=== PATIENT | female | born 1995 | race Caucasian/White ===

== ENCOUNTER → 2016-11-15 | Outpatient (CLI) | payer OTHER ==
--- NOTE | 2016-11-16 07:16 | USB ---
Reason for exam: clinical finding. Indicated problem(s): palpable abnormality in both breasts. Physical Findings: Nurse Summary: 1.5cm movable palpable on the right breast and a 1.0cm movable palpable on the left breast (nurse dw). US Breast BILAT Right breast ultrasound includes all four quadrants, the retroareolar region and axilla. Finding demonstrates a 4 x 2 x 3mm oval, cystic lesion at 9 o'clock. Left breast ultrasound includes all four quadrants, the retroareolar region and axilla. Finding demonstrates no cystic or solid lesion seen. These results were verbally communicated with the patient and result sheet given to the patient on 11/15/16. ASSESSMENT: Benign, BI-RAD 2 RECOMMENDATION: Routine screening mammogram of both breasts at age 35. Manage patient on a clinical basis.
== END | disposition home or self-care (01) ==
LOC: RADUSWWP 15:30
PROVIDERS: ATTEND Family Medicine
DX: N63 Unspecified lump in breast (principal)

== ENCOUNTER → 2023-11-28 | Outpatient (CLI) | payer OTHER ==
[2023-11-28 16:54] LABS: HCT 43.7 % (37.2-46.3); HGB 14.2 g/dL (12.0-15.0); MCH 30.1 pg (27.0-32.0); MCHC 32.5 g/dL (32.0-37.0); MCV 92.6 FL (80.0-97.0); Mean Platelet Volume 11.2 FL (9.5-12.2); NRBC Per 100 WBC 0 X 10*3/uL (0.00-0.01); Platelet Count 364 X 10*3/uL (140-440); RBC 4.72 X 10*6/uL (4.10-5.20); WBC 6.58 X 10*3/uL (4.50-10.00)
[2023-11-28 16:58] LABS: ALT 14 U/L (8-44); AST 15 U/L (13-35); Albumin 4.8 g/dL (3.8-4.9); Albumin/Globulin Ratio 1.85 Ratio (1.60-3.17); Alkaline Phosphatase 69 U/L (41-126); BUN/Creat Ratio 13.71 Ratio (12.00-20.00); Blood Urea Nitrogen 9.6 mg/dL (9.0-27.0); Calcium 9.9 mg/dL (8.7-10.3); Chloride 104 mmol/L (96-109); Globulin 2.6 g/dL (1.6-3.3); Glucose 96 mg/dL (70-110); Potassium 4.1 mmol/L (3.5-5.5); Sodium 140 mmol/L (135-145); Total Bilirubin 0.4 mg/dL (0.3-1.2); Total Protein 7.4 g/dL (6.2-8.2)
== END | disposition home or self-care (01) ==
LOC: LABPAT 08:33
PROVIDERS: ATTEND Surgery
DX: K81.1 Chronic cholecystitis (principal)
CPT/HCPCS: 80053; 85027

== ENCOUNTER 2023-12-04 11:43 | Day surgery (SDC) | payer OTHER ==
[2023-12-04] MEDS ORDERED: SCOPOLAMINE 1 MG/72 HR PATCH TRANSDERM ONE (11:53)
[2023-12-04] MEDS ORDERED: MIDAZOLAM 2 MG/2 ML VIAL IV PRN (11:53)
[2023-12-04] MEDS: DEXAMETHASONE SOD PHOSPHATE 4 MG/ML 1 ML VIAL IV ONE (12:35)
[2023-12-04] MEDS: ONDANSETRON 4 MG/2 ML VIAL IVP ONE (12:36)
[2023-12-04] MEDS: HEPARIN SODIUM,PORCINE 5,000 UNIT/ML 1 ML VIAL SQ PRN (12:36)
[2023-12-04] MEDS: ACETAMINOPHEN TAB 500 MG TAB PO PRN (12:37)
[2023-12-04] MEDS: LACTATED RINGERS 1,000 ML IV SCH (12:45)
--- NOTE | 2023-12-04 13:00 | P.GSHP ---
History of Present Illness H&P Date: 12/04/23 Chief Complaint: Chronic cholecystitis 28-year-old female seen in late September. Patient with complaints of worsening right upper quadrant pain. Pain radiates to the back. Recent liver enzymes normal. Ultrasound shows gallstones with pericholecystic fluid and sonographic Smith sign positive. Past Medical History Past Medical History: Hypertension Additional Past Medical History / Comment(s): gallstones History of Any Multi-Drug Resistant Organisms: None Reported Past Surgical History: Adenoidectomy Additional Past Surgical History / Comment(s): wisdom teeth removed Past Anesthesia/Blood Transfusion Reactions: Postoperative Nausea & Vomiting (PONV) Additional Past Anesthesia/Blood Transfusion Reaction / Comment(s): w/wisdom teeth being removed Smoking Status: Never smoker - Past Family History Mother Family Medical History: No Reported History Medications and Allergies Home Medications Medication Instructions Recorded Confirmed Type Metoprolol Succinate (ER) [Toprol 25 mg PO HS 11/29/23 11/29/23 History Xl] Multivitamins, Thera [Multivitamin 1 tab PO DAILY 11/29/23 11/29/23 History (formulary)] Sertraline [Zoloft] 50 mg PO HS 11/29/23 11/29/23 History Allergies Allergy/AdvReac Type Severity Reaction Status Date / Time sulfamethoxazole Allergy GI upset Verified 11/29/23 15:19 [From Bactrim] trimethoprim [From Bactrim] Allergy GI upset Verified 11/29/23 15:19 Surgical - Exam Vital Signs Temp Pulse Resp BP Pulse Ox 98 F 85 18 133/83 99 12/04/23 12:16 12/04/23 12:16 12/04/23 12:16 12/04/23 12:16 12/04/23 12:16 Physical exam: General: Well-developed, well-nourished HEENT: Normocephalic, sclerae nonicteric Abdomen: Nontender, nondistended Extremities: No edema Neuro: Alert and oriented Assessment and Plan (1) Chronic cholecystitis Narrative/Plan: Will proceed with laparoscopic, possible open cholecystectomy at this time. Risks of bleeding, infection, bile leak, bile duct injury, retained common bile duct stone, trocar injury, conversion to an open procedure, hernia, anesthesia related complications were reviewed. The patient understands and wishes to proceed. Current Visit: Yes Status: Acute Code(s): K81.1 - CHRONIC CHOLECYSTITIS SNOMED Code(s): 41854672
[2023-12-04] MEDS ORDERED: GLYCOPYRROLATE 0.2 MG/ML 2 ML VIAL ONE (13:26)
[2023-12-04] MEDS ORDERED: fentaNYL (PF) 50 MCG/ML 2 ML AMP ONE (13:26)
[2023-12-04] MEDS ORDERED: PROPOFOL 10 MG/ML 20 ML VIAL IV ONE (13:26)
[2023-12-04] MEDS ORDERED: NEOSTIGMINE 1 MG/ML 10 ML VIAL ONE (13:26)
[2023-12-04] MEDS ORDERED: LIDOCAINE 1% INJ 10MG/ML (20 ML MDV) ONE (13:26)
[2023-12-04] MEDS ORDERED: MIDAZOLAM 2 MG/2 ML VIAL ONE (13:26)
[2023-12-04] MEDS ORDERED: ROCURONIUM 10 MG/ML (5 ML VIAL) IV ONE (13:26)
[2023-12-04] MEDS ORDERED: PHENYLEPHRINE 10 MG/ML VIAL ONE (13:26)
[2023-12-04] MEDS ORDERED: SUCCINYLCHOLINE CHLORIDE 200 MG/10 ML VIAL IV ONE (13:26)
[2023-12-04] MEDS ORDERED: ePHEDrine 50 MG/ML 1 ML VIAL ONE (13:26)
[2023-12-04] MEDS: BUPIVACAINE (PF) 0.25% 30 ML VIAL SQ ONE (13:52)
--- NOTE | 2023-12-04 14:31 | P.OP ---
Date of Procedure: 12/04/23 Procedure(s) Performed: PREOPERATIVE DIAGNOSIS: Chronic cholecystitis POSTOPERATIVE DIAGNOSIS: Same PROCEDURE: Laparoscopic cholecystectomy SURGEON: Sri EBL: 10 cc ANESTHESIA: Gen. COMPLICATIONS: None OPERATIVE PROCEDURE: The patient was brought and placed on the operating room table in the supine position. The patient was placed under general anesthesia at that time. The abdomen was prepped and draped in the usual sterile fashion. A small vertical infraumbilical incision was made. The fascia was grasped with the Keely forceps. The fascia was retracted anteriorly. The Veress needle was advanced into the peritoneal cavity. The saline drop test was normal. Insufflation took place up to 15 mmHg. A 5 mm optical trocar was advanced and the peritoneal cavity. 2 additional 5 mm trochars were placed in the right upper quadrant under direct visualization. A 12 mm trocar was advanced into the epigastric incision site. The gallbladder was retracted superiorly and laterally. There was mild inflammatory changes present with a few adhesions to the omentum. The patient's gallbladder was very long and narrow. A stone was located just proximal to the infundibulum. The peritoneum overlying the infundibulum was bluntly dissected. The patient's cystic duct was visualized. The junction between the cystic duct common and hepatic duct was identified. The critical view of safety was achieved after blunt dissection. The cystic duct was then divided after placement of 3 12 mm clips on the patient's side and one on the specimen side. The cystic artery was identified and clipped as well. A small vessel was seen along the gallbladder fossa and clipped as well. The gallbladder was then removed from the liver bed using electrocautery. The gallbladder was then removed from the epigastric trocar site with an Endo Catch bag. The gallbladder fossa was irrigated with saline. There was no evidence of any bleeding or biliary drainage seen. The fascia at the 12 millimeter site was closed using a Daryl-Jose 0 Vicryl stitch. The trochars were then removed. The skin at all 4 sites was closed using a 4-0 Monocryl stitch. Skin glue was utilized on the incision sites. At the end of this procedure the sponge and needle counts were correct. DISPOSITION: Stable to the recovery room
[2023-12-04 14:40] VITALS: TEMP 98.1
[2023-12-04] MEDS: HYDROmorphone 0.5 MG/0.5 ML SYRINGE IVP PRN (14:44)
[2023-12-04 15:28] VITALS: RESP 16
[2023-12-04] MEDS: IBUPROFEN 600 MG TAB PO SCH (15:45)
[2023-12-04 16:49] VITALS: PULSE 75
[2023-12-04 17:01] VITALS: BP 112/78
[2023-12-04] MEDS ORDERED: ACETAMINOPHEN TAB 325 MG TAB PO SCH (18:00)
== END 2023-12-04 17:28 | disposition home or self-care (01) ==
LOC: OR 11:43
PROVIDERS: ATTEND Surgery
DX: K80.10 Calculus of gallbladder with chronic cholecystitis without obstruction (principal); I10 Essential (primary) hypertension; Z88.1 Allergy status to other antibiotic agents; Z88.2 Allergy status to sulfonamides; Z90.89 Acquired absence of other organs
CPT/HCPCS: 81025; 88304

== ENCOUNTER 2024-10-15 09:53 | Outpatient (CLI) | payer OTHER ==
[2024-10-15 11:22] LABS: Basophils # (A) 0.04 10*3/uL (0.00-0.10); Basophils % (A) 0.4 %; Eosinophils # (A) 0.13 10*3/uL (0.04-0.35); Eosinophils % (A) 1.3 %; HCT 36.0 % (37.2-46.3); HGB 11.9 g/dL (12.0-15.0); Lymphocytes # (A) 1.35 10*3/uL (0.90-5.00); Lymphocytes % (A) 13.7 %; MCH 29.6 pg (27.0-32.0); MCHC 33.1 g/dL (32.0-37.0); MCV 89.6 fL (80.0-97.0); Monocytes # (A) 0.67 10*3/uL (0.20-1.00); Monocytes % (A) 6.8 %; Neutrophils # (A) 7.58 10*3/uL (1.80-7.70); Neutrophils % (A) 76.9 %; Platelet Count 230 10*3/uL (140-440); RBC 4.02 10*6/uL (4.10-5.20); RDW 14.3 % (11.5-14.5); WBC 9.86 10*3/uL (4.50-10.00)
[2024-10-15 11:40] LABS: ALT 11 U/L (4-34); AST 20 U/L (14-36); African American GFR (CKD) >90 (>60 ml/min/1.73 sqM); Blood Urea Nitrogen 11 mg/dL (7-17); LDH 177 U/L (120-246); Non-African American GFR(CKD) >90 (>60 ml/min/1.73 sqM); Uric Acid 8.2 mg/dL (3.7-7.4)
[2024-10-15 11:42] LABS: Bacteria,Urine Occasional /hpf; Bilirubin,Urine Negative (Negative); Blood,Urine Negative (Negative); Budding Yeast,Urine Few /hpf; Color,Urine Colorless; Glucose,Urine (UA) Negative (Negative); Ketones,Urine Negative (Negative); Leukocyte Esterase,Urine Large (Negative); Nitrite,Urine Negative (Negative); PH, Urine 6.0 (5.0-8.0); Protein,Urine Negative (Negative); RBC,Urine 4 /hpf (0-5); Specific Gravity,Urine 1.006 (1.001-1.035); Squamous Epithelial Cell,Urine 7 /hpf (0-4); Urobilinogen,Urine <2.0 mg/dL (<2.0); WBC,Urine 27 /hpf (0-5)
[2024-10-15 13:05] VITALS: BP 142/98; PULSE 88; RESP 18; TEMP 97.4
[2024-10-15 13:54] LABS: Protein/Creatinine Ratio,Urine 0.583
== END 2024-10-15 12:48 | disposition home or self-care (01) ==
LOC: FBPOP 09:53
PROVIDERS: ATTEND Obstetrics & Gynecology Obstetrics
CPT/HCPCS: 59025; 81001; 82565; 82570; 83615; 84156; 84450; 84460; 84520; 84550; 85025; 99215

== ENCOUNTER 2024-10-16 16:00 | Inpatient (IN) | payer OTHER ==
[2024-10-16] MEDS ORDERED: METHYLERGONOVINE 0.2 MG/ML 1 ML AMP IM PRN (16:18)
[2024-10-16] MEDS ORDERED: CARBOPROST TROMETHAMINE 250 MCG/ML 1 ML AMP IM PRN (16:18)
[2024-10-16] MEDS ORDERED: TERBUTALINE 1 MG/ML VIAL SQ PRN (16:18)
[2024-10-16] MEDS ORDERED: OXYTOCIN 10 UNIT/ML 1 ML VIAL IM PRN (16:18)
[2024-10-16] MEDS ORDERED: TRANEXAMIC 1,000 MG/100ML-NACL 1,000 MG in EMPTY BAG 1 BAG IV PRN (16:18)
[2024-10-16] MEDS: DINOPROSTONE 10 MG INSERT.ER VAGINAL ONE (17:12)
[2024-10-16] MEDS: LACTATED RINGERS 1,000 ML IV SCH (17:13)
[2024-10-16 17:16] LABS: Basophils # (A) 0.06 10*3/uL (0.00-0.10); Basophils % (A) 0.6 %; Eosinophils # (A) 0.18 10*3/uL (0.04-0.35); Eosinophils % (A) 1.7 %; HCT 33.8 % (37.2-46.3); HGB 11.4 g/dL (12.0-15.0); Lymphocytes # (A) 1.62 10*3/uL (0.90-5.00); Lymphocytes % (A) 15.1 %; MCH 30.5 pg (27.0-32.0); MCHC 33.7 g/dL (32.0-37.0); MCV 90.4 fL (80.0-97.0); Monocytes # (A) 0.72 10*3/uL (0.20-1.00); Monocytes % (A) 6.7 %; Neutrophils # (A) 8.02 10*3/uL (1.80-7.70); Neutrophils % (A) 74.9 %; Platelet Count 206 10*3/uL (140-440); RBC 3.74 10*6/uL (4.10-5.20); RDW 14.5 % (11.5-14.5); WBC 10.71 10*3/uL (4.50-10.00)
[2024-10-17] MEDS: NALBUPHINE 10 MG/ML (10 ML MDV) IV PRN (00:27)
[2024-10-17] MEDS: AMPICILLIN 2,000 MG in SODIUM CHLORIDE 0.9% 100 ML IVPB STA (06:25)
[2024-10-17] MEDS ORDERED: SODIUM CHLORIDE 0.9% 250 ML BAG ONE (07:35)
[2024-10-17] MEDS ORDERED: fentaNYL (PF) 50 MCG/ML 5 ML AMP ONE (07:35)
[2024-10-17] MEDS ORDERED: ROPIVACAINE 5 MG/ML 30 ML VIAL ONE (07:35)
[2024-10-17] MEDS: OXYTOCIN 30 UNITS/500 ML NS 30 UNIT in SALINE 1 500ML.BAG IV SCH (08:39)
[2024-10-17] MEDS: LIDOCAINE 0.5% (PF) 5 MG/ML (50 ML SDV) SQ PRN (08:40)
[2024-10-17] MEDS ORDERED: diphenhydrAMINE 25 MG CAP PO PRN (08:51)
[2024-10-17] MEDS ORDERED: diphenhydrAMINE 50 MG/ML 1 ML VIAL IVP PRN ×2 (08:51)
[2024-10-17] MEDS ORDERED: LANOLIN CREAM 1 GM TUBE TOPICAL PRN (08:51)
[2024-10-17] MEDS ORDERED: HYDROCORTISONE 2.5% RECTAL CREAM 30 GM TUBE RECTAL PRN (08:51)
[2024-10-17] MEDS ORDERED: BENZOCAINE/MENTHOL SPRAY 1 GM/SPRAY AEROSOL TOPICAL PRN (08:51)
[2024-10-17] MEDS ORDERED: ZOLPIDEM 5 MG TAB PO PRN (08:51)
[2024-10-17] MEDS ORDERED: SIMETHICONE 80 MG CHEWABLE PO PRN (08:51)
[2024-10-17] MEDS ORDERED: OXYTOCIN 30 UNITS/500 ML NS 30 UNIT in SALINE 1 500ML.BAG IV SCH (09:00)
[2024-10-17] MEDS: METOPROLOL SUCCINATE (ER) 25 MG TAB.ER.24H PO SCH (10:09)
[2024-10-17] MEDS: SERTRALINE 50 MG TAB PO SCH (10:09)
[2024-10-17] MEDS: PRENATAL VIT-IRON-FOLIC ACID 1 EACH TABLET PO SCH (10:13)
[2024-10-17] MEDS: IBUPROFEN 800 MG TAB PO SCH (10:13)
[2024-10-17] MEDS ORDERED: AMPICILLIN 1,000 MG in SODIUM CHLORIDE 0.9% 50 ML IVPB SCH (11:00)
[2024-10-17] MEDS: ACETAMINOPHEN TAB 500 MG TAB PO SCH (13:00)
[2024-10-17] MEDS: SENNOSIDES-DOCUSATE SODIUM 1 EACH TAB PO SCH (21:54)
--- NOTE | 2024-10-18 13:39 | P.PROBDLV ---
Vaginal Delivery Note - . Vaginal Delivery Note: Date of service 10/17/2024 Findings viable male delivered at, weight 7 pounds 0 ounces, Apgars of 8 and 9 at 1 and 5 minutes respectively 29-year-old 2 para 0-0-1-0 that presented for medical induction of labor secondary to chronic hypertension. Patient was admitted and Cervidil was placed without difficulty. Dustin patient made good progress through the night noted to be 3 cm at 5 AM, patient progressed quickly to 5-6 and eventually complete dilation. Once completely dilated patient began pushing and with excellent maternal effort had a normal spontaneous vaginal delivery of a viable male at 836, weight is pending. After 2-minute delay the umbilical cord was doubly clamped and cut. Since was delivered spontaneously intact with a three- vessel cord being noted. Spontaneous cry was noted at . Compound hand was noted at the time of delivery. Uterus is noted be firm below the umbilicus at this time. On inspection of patient's vaginal vault second-degree midline laceration was appreciated. This was injected with lidocaine and repaired in the usual fashion with 3-0 Rapide. Hemostasis was appreciated after delivery. All counts were noted be correct x 2 at the end of the delivery. estimated blood loss 200 cc Patient and infant tolerated delivery well and are resting comfortably
--- NOTE | 2024-10-18 13:41 | P.HPOB ---
History of Present Illness H&P Date: 10/16/24 Chief Complaint: Term , chronic hypertension 29-year-old at 37+ weeks presents to labor and delivery for induction of labor secondary to chronic hypertension. Patient has had stable blood pressures to the until yesterday 140s over 80s was appreciated in the office at routine visit. Patient denies signs or symptoms of preeclampsia. Discussion about medical induction of labor secondary to chronic hypertension on labetalol. Patient stated understanding. Otherwise patient's care has been uncomplicated. Today patient notes good movement denies vaginal bleeding or loss of fluid. Blood work this patient has a blood type of O-, rubella status immune, hepatitis B surface engine negative, HIV negative, group beta strep culture is pending Review of Systems Constitutional: Denies chills, Denies fatigue, Denies fever Ears, nose, mouth and throat: Denies headache Cardiovascular: Reports leg edema Respiratory: Denies dyspnea Gastrointestinal: Denies nausea, Denies vomiting Genitourinary: Reports Past Medical History Past Medical History: Hypertension Additional Past Medical History / Comment(s): gallstones History of Any Multi-Drug Resistant Organisms: None Reported Past Surgical History: Adenoidectomy Additional Past Surgical History / Comment(s): wisdom teeth removed Past Anesthesia/Blood Transfusion Reactions: Postoperative Nausea & Vomiting (PONV) Additional Past Anesthesia/Blood Transfusion Reaction / Comment(s): w/wisdom teeth being removed Smoking Status: Never smoker - Past Family History Mother Family Medical History: No Reported History Medications and Allergies Home Medications Medication Instructions Recorded Confirmed Type Metoprolol Succinate (ER) [Toprol 25 mg PO HS 11/29/23 10/16/24 History Xl] Sertraline [Zoloft] 50 mg PO HS 11/29/23 10/16/24 History Aspirin [Adult Low Dose Aspirin EC] 81 mg PO DAILY 10/15/24 10/16/24 History Vit No.179/Iron/Folic 1 each PO DAILY 10/15/24 10/16/24 History [ Tablet] Allergies Allergy/AdvReac Type Severity Reaction Status Date / Time sulfamethoxazole Allergy GI upset Verified 10/15/24 10:00 [From Bactrim] trimethoprim [From Bactrim] Allergy GI upset Verified 10/15/24 10:00 Exam Osteopathic Statement: *. No significant issues noted on an osteopathic structural exam other than those noted in the History and Physical/Consult. Intake and Output 10/16/24 10/16/24 10/16/24 06:59 14:59 22:59 Other: Weight 94.801 kg Targeted physical exam is performed this date in general this is a well- nourished well-developed female in no acute distress, breathing is nonlabored, heart has a regular rate and rhythm, abdomen is gravid, on cervical exam she is 150-3 station vertex presentation, Cervidil is placed without difficulty. heart tones are noted to be category 1 and she is not regla. Results Result Diagrams: 10/16/24 16:57 Assessment and Plan (1) Term Current Visit: Yes Status: Acute Code(s): Z34.90 - ENCNTR FOR SUPRVSN OF NORMAL , UNSP, UNSP TRIMESTER SNOMED Code(s): 84425640 (2) Chronic hypertension affecting Current Visit: Yes Status: Acute Code(s): O10.919 - UNSP PRE-EXISTING HTN COMP , UNSP TRIMESTER SNOMED Code(s): 34255137 Plan: Admit to labor and delivery Cervidil induction of labor secondary to chronic hypertension Options for analgesia discussed including Nubain, nitrous, epidural Questions are answered and plan of care is discussed
--- NOTE | 2024-10-18 13:44 | P.PNOBGVD ---
Subjective - Subjective Principal diagnosis: day #1, status post spontaneous vaginal delivery Interval history: Patient is doing well . She is ambulating and voiding without difficulty. Her lochia was noted to be minimal. She denies concerns. She is breast-feeding without Patient reports: Reports appetite normal, Reports voiding normally, Reports pain well controlled, Reports ambulating normally : doing well Objective - Latest Vital Signs Latest vital signs: Vital Signs Temp Pulse Resp BP Pulse Ox 10/18/24 08:00 97.6 F 62 17 144/94 97 10/17/24 23:25 98.5 F 90 18 121/75 10/17/24 16:00 98.4 F 72 16 138/77 98 Intake and Output 10/17/24 10/18/24 10/18/24 22:59 06:59 14:59 Other: # Voids 1 2 2 - Exam Extremities: Present: normal, edema Abdomen: Present: normal appearance, soft Uterus: Present: normal, firm Assessment and Plan (1) Term Current Visit: Yes Status: Acute Code(s): Z34.90 - ENCNTR FOR SUPRVSN OF NORMAL , UNSP, UNSP TRIMESTER SNOMED Code(s): 99652653 (2) Chronic hypertension affecting Current Visit: Yes Status: Acute Code(s): O10.919 - UNSP PRE-EXISTING HTN COMP , UNSP TRIMESTER SNOMED Code(s): 18644926 (3) Status post normal vaginal delivery Current Visit: Yes Status: Acute Code(s): DWV8652 - SNOMED Code(s): 753312993 (4) Obstetrical laceration, second degree Current Visit: Yes Status: Acute Code(s): O70.1 - SECOND DEGREE PERINEAL LACERATION DURING DELIVERY SNOMED Code(s): 7850032 Plan: Patient is doing well . Plan to continue routine care anticipate discharge home tomorrow.
[2024-10-18 16:57] VITALS: RESP 16
--- NOTE | 2024-10-19 09:25 | P.DS ---
Providers Date of admission: 10/16/24 16:08 Expected date of discharge: 10/18/24 Attending physician: Linda Kirkland Primary care physician: Stated None - Discharge Diagnosis(es) (1) Term Current Visit: Yes Status: Acute (2) Chronic hypertension affecting Current Visit: Yes Status: Acute (3) Status post normal vaginal delivery Current Visit: Yes Status: Acute (4) Obstetrical laceration, second degree Current Visit: Yes Status: Acute Hospital Course: 29-year-old G1,now P1 presented to labor and delivery on 10/16 for scheduled induction of labor secondary to chronic hypertension on metoprolol. For full details of this patient please see the dictated history and physical Patient has been receiving routine care with myself which has been complicated by diagnosis of chronic hypertension. Patient was admitted to labor and delivery and Cervidil induction of labor was begun. Patient made good progress through the night noted to be 3 cm at 5 AM, patient made good progress toward complete dilation and began pushing. With excellent maternal effort patient had a normal spontaneous vaginal delivery of a viable male infant at 836, weight of 7 pounds 0 ounces, Apgars of 8 and 9 at 1 and 5 minutes respectively. Patient did sustain a second-degree midline vaginal laceration during delivery, this was repaired in the usual fashion with 3-0 Rapide. Patient's course has been uneventful, on this day #2 she is ambulating and voiding without difficulty. She is tolerating a regular diet without nausea or vomiting. She states her pain is well-controlled. She is feeling well and would like discharge home Patient Condition at Discharge: Good Plan - Discharge Summary New Discharge Prescriptions: No Action Sertraline [Zoloft] 50 mg PO HS Metoprolol Succinate (ER) [Toprol Xl] 25 mg PO HS Vit No.179/Iron/Folic [ Tablet] 1 each PO DAILY Aspirin [Adult Low Dose Aspirin EC] 81 mg PO DAILY Discharge Medication List Metoprolol Succinate (ER) [Toprol Xl] 25 mg PO HS 11/29/23 [History] Sertraline [Zoloft] 50 mg PO HS 11/29/23 [History] Aspirin [Adult Low Dose Aspirin EC] 81 mg PO DAILY 10/15/24 [History] Vit No.179/Iron/Folic [ Tablet] 1 each PO DAILY 10/15/24 [History] Follow up Appointment(s)/Referral(s): Linda Kirkland DO [Doctor of Osteopathic Medicine] - 2 Weeks (6 Week 11/28/2024 @2:15Pm) Patient Instructions/Handouts: Vaginal Delivery (DC), Vaginal Delivery (GEN) Activity/Diet/Wound Care/Special Instructions: No tub baths or intercourse until 6 weeks , [id number]-mttenhk ibuprofen 600 mg or 3 tablets every 6 hours as needed for pain. Blood pressure check in 2 weeks. Discharge Disposition: HOME SELF-CARE
[2024-10-19 09:50] VITALS: BP 134/92; PULSE 77; TEMP 98.1
[2024-10-19] MEDS: SERTRALINE 50 MG TAB PO SCH (09:52)
[2024-10-19] MEDS: METOPROLOL SUCCINATE (ER) 25 MG TAB.ER.24H PO SCH (09:52)
== END 2024-10-19 11:45 | disposition home or self-care (01) | DRG 807 ==
LOC: 4FBP 16:08
PROVIDERS: ADMIT Obstetrics & Gynecology Obstetrics; ATTEND Obstetrics & Gynecology Obstetrics
PROC: 10E0XZZ Delivery of Products of Conception, External Approach (ICD-10-PCS; principal; 2024-10-17)
PROC: 0KQM0ZZ Repair Perineum Muscle, Open Approach (ICD-10-PCS; 2024-10-17)
PROC: 3E0P7VZ Introduction of Hormone into Female Reproductive, Via Natural or Artificial Opening (ICD-10-PCS; 2024-10-17)
DX: O10.92 Unspecified pre-existing hypertension complicating childbirth (principal); Z37.0 Single live birth; O70.1 Second degree perineal laceration during delivery; Z3A.37 37 weeks gestation of pregnancy; Z79.82 Long term (current) use of aspirin; Z79.899 Other long term (current) drug therapy
CPT/HCPCS: 85025; 86850; 86870; 86900; 86901